=== PATIENT | male | born 1955 | race Caucasian/White ===

== ENCOUNTER → 2017-06-19 | Outpatient (CLI) | payer BC ==
[~2017-06-19] MED LIST: ALLO100T PO; CLON1TAB3 PO; HYDR1TAB2 PO; IBUP-1277 PO; LISI-729 PO; OMEP20CA9 PO
[2017-06-19 12:26] LABS: BASO % 0.1 %; BASO ABS # 0.02 K/uL (0-0.2); EOS % 0.4 %; EOS ABS # 0.06 K/uL (0-0.5); HEMATOCRIT 45.5 % (42-52); HEMOGLOBIN 16.1 g/dL (14.0-18.0); IG# 0.06 K/uL (0.00-0.02); LYMPH % 25.5 %; MEAN CELL VOLUME 87.2 fL (80-100); MEAN CORPUSCULAR HEMOGLOBIN 30.8 pg (25-34); MEAN CORPUSCULAR HGB CONC 35.4 g/dl (32-36); MEAN PLATELET VOLUME 9.1 fL (7.4-10.4); MONO % 7.3 %; MONO ABS # 1.01 K/uL (0.11-0.59); NEUT % 66.3 %; PLATELET COUNT 303 K/uL (130-400); RED CELL DISTRIBUTION WIDTH CV 13.4 % (11.5-14.5); RED CELL DISTRIBUTION WIDTH SD 42.4 fL (36.4-46.3); WHITE BLOOD COUNT 13.75 K/uL (4.8-10.8)
[2017-06-19 12:51] LABS: ALT/SGPT 38 U/L (12-78); AST/SGOT 13 U/L (15-37); BLOOD UREA NITROGEN 16 mg/dl (7-18); CALCIUM 9.2 mg/dl (8.5-10.1); CARBON DIOXIDE 27 mmol/L (21-32); CHOLESTEROL 209 mg/dl (0-200); CREATININE 1.18 mg/dl (0.60-1.40); GLUCOSE 107 mg/dl (70-99); POTASSIUM 3.6 mmol/L (3.5-5.1); SODIUM 143 mmol/L (136-145)
[2017-06-19 12:57] LABS: ALKALINE PHOSPHATASE 57 U/L (45-117); LDL CHOLESTEROL CALCULATED 128 mg/dl; TOTAL PROTEIN 7.8 gm/dl (6.4-8.2); URIC ACID 5.7 mg/dl (2.6-7.2)
== END | disposition home or self-care (01) ==
LOC: C.LABMFLN 07:05
PROVIDERS: ATTEND Family Medicine
DX: R78.5 Finding of other psychotropic drug in blood (principal); J01.90 Acute sinusitis, unspecified; M10.9 Gout, unspecified

== ENCOUNTER 2020-09-06 05:41 | Observation (INO) ==
--- NOTE | 2020-07-30 12:09 | PAT Medication Instructions ---
Medication Instructions Date of Service July 30, 2020 Home Medications Medication Instructions Recorded methocarbamol 500 mg tablet 500 mg PO BID #180 tab 03/07/20 tamsulosin 0.4 mg capsule 0.4 mg PO DAILY #30 cap 04/25/20 fenofibrate nanocrystallized 145 145 mg PO DAILY #90 tab 05/16/20 mg tablet omeprazole 20 mg capsule,delayed 20 mg PO DAILY #90 cap 05/16/20 release clonazepam 0.5 mg tablet See Rx Instructions PO HS PRN #45 06/08/20 tab hydrocodone 5 mg-acetaminophen 325 1 tab PO Q6H PRN #120 tab 07/24/20 mg tablet methocarbamol 500 mg tablet 500 mg PO BID tamsulosin 0.4 mg capsule 0.4 mg PO DAILY fenofibrate nanocrystallized 145 mg tablet 145 mg PO DAILY omeprazole 20 mg capsule,delayed release 20 mg PO DAILY clonazepam 0.5 mg tablet See Rx Instructions PO HS PRN hydrocodone 5 mg-acetaminophen 325 mg tablet 1 tab PO Q6H PRN STOP taking 48 hours before surgery fenofibrate nanocrystallized 145 mg tablet 145 mg PO DAILY DO NOT take the morning of surgery methocarbamol 500 mg tablet 500 mg PO BID Take morning of surgery With a small sip of water, OTHERWISE NOTHING TO EAT OR DRINK AFTER MIDNIGHT: tamsulosin 0.4 mg capsule 0.4 mg PO DAILY omeprazole 20 mg capsule,delayed release 20 mg PO DAILY hydrocodone 5 mg-acetaminophen 325 mg tablet 1 tab PO Q6H PRN (okay to take up to 4 hours prior to surgery if needed) Take evening before surgery methocarbamol 500 mg tablet 500 mg PO BID clonazepam 0.5 mg tablet See Rx Instructions PO HS PRN (if needed) hydrocodone 5 mg-acetaminophen 325 mg tablet 1 tab PO Q6H PRN (if needed) Other Notes If you have any questions please call us at [phone] or [phone] or [phone] or [phone]
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
[~2020-09-06 05:41] MED LIST changes: -ALLO100T PO; -CLON1TAB3 PO; +HEPARIN SOD 5,000 UNIT/0.5 ML VIAL SC SCH; -HYDR1TAB2 PO; -IBUP-1277 PO; +LACTATED RINGER'S 1,000 ML IV SCH; -LISI-729 PO; +LR 15ML/HR IV SCH; -OMEP20CA9 PO; +ceFAZolin 2000MG 2,000 MG/15 ML SYR IV SCH
[2020-09-06] MEDS ORDERED: ceFAZolin 2000MG 2,000 MG/15 ML SYR IV SCH (06:00)
[2020-09-06] MEDS ORDERED: HEPARIN SOD 5,000 UNIT/0.5 ML VIAL SQ SCH (06:00)
[2020-09-06] MEDS ORDERED: LR 15ML/HR IV SCH (06:00)
--- NOTE | 2020-09-06 07:01 | History & Physical Bridge Note ---
Date of Service September 06, 2020 History & Physical Bridge Note I have examined the patient, reviewed the History & Physical and in the interval since the performance of the History & Physical I have noted the following changes of clinical significance: no changes noted
--- NOTE | 2020-09-06 07:02 | History & Physical Report ---
Date of Service September 06, 2020 Assessment & Plan (1) Prostate cancer: Plan: Risks and benefits discussed at length for procedure. These include bleeding, infection, injury to surrounding tissues or organs, and risks associated with anesthesia. Patient states understanding and agrees to proceed. Will sign consent and proceed. Plan for Robot Asst. Laparoscopic Prostatectomy with bilateral pelvic lymph node dissection. History of Present Illness Primary Care Provider: Chad Duenas DO Patient here for procedure. No changes in medical issues. No major changes in urinary issues. Continued issues and concerns. No change in pain or discomfort. No severe fevers or chills. No chest pain or shortness of breath. Risks and benefits discussed at length for procedure. These include bleeding, infection, injury to surrounding tissues or organs, and risks associated with anesthesia. Patient and/or family states understanding and agrees to proceed. Consent and supporting information completed. Allergies Allergy/AdvReac Type Severity Reaction Status Date / Time iodine Allergy Intermediate HIVES Verified 09/06/20 05:56 shellfish derived Allergy Intermediate HIVES Verified 09/06/20 05:56 Home Medications Medication Instructions Recorded Confirmed Type methocarbamol 500 mg tablet 500 mg PO BID #180 tab 03/07/20 09/06/20 Rx tamsulosin 0.4 mg capsule 0.4 mg PO DAILY #30 cap 04/25/20 09/06/20 Rx fenofibrate nanocrystallized 145 145 mg PO DAILY #90 tab 05/16/20 09/06/20 Rx mg tablet omeprazole 20 mg capsule,delayed 20 mg PO DAILY #90 cap 05/16/20 09/06/20 Rx release clonazepam 0.5 mg tablet See Rx Instructions PO HS PRN #45 06/08/20 09/06/20 Rx tab hydrocodone 5 mg-acetaminophen 325 1 tab PO Q6H PRN #120 tab 08/23/20 09/06/20 Rx mg tablet Past Med/Surg History Medical History Abdominal hernia Arthritis BPH (benign prostatic hyperplasia) Cervical disc disease CKD (chronic kidney disease), stage III GERD (gastroesophageal reflux disease) controlled History of COVID-19 Dx 12/2019 > symptoms fever, fatigue, chills > resolved Hx of gout Hyperlipidemia Lumbar disc disease Obstructive sleep apnea on CPAP CPAP Occipital neuralgia Prostate cancer Surgical History Cyst REMOVED FROM BACK "WAS GROWING AROUND SPINAL CORD" H/O hand surgery LITTLE FINGER FRACTURE REPAIR History of colonoscopy History of lumbar surgery History of prostate biopsy History of tonsillectomy Hx of appendectomy Hx of cholecystectomy Family History Mother Diabetes Family history of diabetes mellitus Father Hypercholesterolemia Hypertension Family history of diabetes mellitus Unknown Prostate cancer Breast cancer Cancer Pancreatic, Brain Other No family history of adverse response to anesthesia Social History Smoking Status: Never smoker Second Hand Exposure: Yes ( A CHILD); Do You Dip or Chew Tobacco: No; Hx Alcohol Use: No Hx Substance Use: No Preferred Language: Zambian Communication Ability: Effective Visual Impairment: No Limitations Hearing Ability: Normal Network Developer Required: No Beliefs That Will Affect Care: None marital status: Current Living Situation: Spouse current occupational status: employed Feels Safe at Home: Yes Safety Concerns: Feels Safe At This Time Assistive Devices: CPAP and Glasses Review of Systems All systems reviewed & are unremarkable except as noted in HPI & below Physical Exam Physical Exam: General: Alert/Arousable. No Acute illness. . HEENT: Inspection normal. Normal inspection of face. Normal inspection of neck. Psychologic: Normal affect/No change in mentation. Respiratory: No use of accessory muscles. No respiratory changes or exacerbation or changes with tachypnea or dyspnea. Cardiovascular: No tachycardia Skin: Maury and Dry. No new rashes or visible lesions. Abdomen: Normal inspection. No guarding. Results & Data ([facility]) Vital Signs (Past 12 Hours) Vital Signs Temp Pulse Resp BP Pulse Ox 09/06/20 06:09 36.6 C 65 18 130/79 97 PG Care Time/CCT Total # of Minutes Spent Total Time Spent with Patient: Total time spent is greater than 50% in coordination of care (as documented) at patient's floor/unit and/or counseling patient: Coding Level of Care Code None Diagnoses Prostate cancer C61
[2020-09-06] MEDS ORDERED: fentaNYL citrate 100 MCG/2 ML VIAL ONE ×4 (07:04→11:33)
[2020-09-06] MEDS ORDERED: MIDAZOLAM HCL 1 MG/ML 2ML VIAL ONE (07:04)
[2020-09-06] MEDS ORDERED: BUPIVACAINE 0.5 % 5 MG/1 ML MPF 30ML VIAL ONE (07:19)
[2020-09-06] MEDS: LACTATED RINGER'S 1,000 ML IV SCH ×4 (07:27→23:08)
[2020-09-06] MEDS ORDERED: FLUMAZENIL 0.1 MG/1 ML 10 ML VIAL IV PRN (08:10)
[2020-09-06] MEDS ORDERED: ePHEDrine sulfate 50 MG/ML AMP IV PRN (08:10)
[2020-09-06] MEDS ORDERED: ATROPINE SULFATE 0.1 MG/ML 10ML SYR IV PRN (08:10)
[2020-09-06] MEDS ORDERED: ONDANSETRON INJ 2 MG/ML 2 ML VIAL IV PRN (08:10)
[2020-09-06] MEDS ORDERED: NALOXONE HCL 0.4 MG/1 ML VIAL/CARP IV PRN (08:10)
[2020-09-06] MEDS ORDERED: PROMETHAZINE HCL 12.5 MG in SODIUM CHLORIDE 0.9% 50 ML IV PRN (08:10)
[2020-09-06] MEDS ORDERED: LABETALOL HCL IV 5 MG/ML 20ML IV PRN (08:10)
[2020-09-06] MEDS ORDERED: DEXAMETHASONE SOD INJ 4 MG/ML VIAL ONE (08:22)
[2020-09-06] MEDS ORDERED: GLYCOPYRROLATE 0.2 MG/ML VIAL ONE (08:22)
[2020-09-06] MEDS ORDERED: PROPOFOL IV EMULSION 10 MG/ML 20 ML VIAL IV ONE (08:22)
[2020-09-06] MEDS ORDERED: ROCURONIUM BROMIDE 10 MG/ML 5 ML VIAL IV ONE ×5 (08:22→10:53)
[2020-09-06] MEDS ORDERED: ONDANSETRON INJ 2 MG/ML 2 ML VIAL ONE ×2 (08:22→10:53)
[2020-09-06] MEDS ORDERED: NEOSTIGMINE METHYLSULFATE 1 MG/ML 10ML VIAL ONE (08:22)
[2020-09-06] MEDS ORDERED: LIDOCAINE 2% 2 ML VIAL/AMP(20MG/ML) INFIL ONE (08:22)
[2020-09-06] MEDS ORDERED: SURGICEL ABSORB HEMOSTAT 2IN X 14IN TOP ONE (08:31)
[2020-09-06] MEDS ORDERED: FLOSEAL HEMOSTATIC MATRIX 10ML TOP ONE (10:23)
--- NOTE | 2020-09-06 11:44 | Operative Report ---
PG Post Operative Report Pre & Post Diagnosis Operation Date: 09/06/20 07:30 Pre-Op Diagnosis: Prostate Cancer Post-Op Diagnosis: Prostate Cancer I identified the patient and participated in the time-out.: Yes Procedure Operation Date: 09/06/20 07:30 Actual Procedures p Robotic Laparoscopic Assisted Radical Retropublic Prostatectomy, Pelvic Lymph Node Dissection, Repair of Umbilical Hernia and extensive lysis of adhesions - Bobby Duke, Surgeon Bobby Duke, II, DO Draw Tender Sylvester PAYAN Estimated Blood Loss 75 Findings Consistent with Post-Op Diagnosis Significant adhesions on the right lower quadrant at site of open appendectomy scar. Umbilical hernia. Specimens Prostate and Seminal Vesicle Left Pelvic Lymph Nodes Right Pelvic Lymph Nodes. Umbilical hernia Drains 18 Mack catheter. Anesthesia Type General Complications none Disposition Disposition: Recovery Room Indications Patient with Prostate Cancer. Risk and benefits were discussed at length. Patient elected to undergo robotic assisted laparoscopic Radical Prostatectomy. Description of Procedure The patient was brought to the operative suite and placed under general endotracheal intubation anesthesia in the supine position. The patient was transferred to the dorsal lithotomy position. At this point, the patient prepped and draped in the usual sterile fashion and a timeout was completed. Preoperative antibiotics of Ancef 2 grams had been given. TEENA's and SCD's were placed on the patient's lower extremities. A catheter was placed using sterile technique. With the time out completed the patient was placed into Trendelenburg and the skin at the umbilicus was anesthetized. A small incision was made superior to the umbilicus. A Varess Needle was placed and confirmed to be in the abdominal cavity. Water drop test passed. The Abdominal cavity was insufflated to 15 mmHG. The camera port was then placed. A laparoscopic camera was placed into the port and the abdominal cavity inspected. No concerning features were noted. At this point, the skin was marked for port placement and 8mm working ports were placed. The skin was anesthetized down to fascia and an approx 1cm incision was made to place the 3 x 8mm ports. A 12mm and 5 mm funeral assistant ports were also placed in similar fashion under direct visualization. The patient was transferred into steep Trendelenburg position and the legs lowered. The robot was positioned and docked. The camera was placed and all trocars were positioned under direct visualization. Sylvester PAYAN was integral in port placement, camera utilization, and docking procedure. She remained in sterile attire and then proceeded to assist the remainder of the case. At this point, I transitioned to the robotic console. At this point, the sigmoid colon was mobilized superiorly and the pelvis assessed. Adhesions were freed to allow mobilization. Extensive adhesions were lysed in the right lower quadrant near the location of an appendectomy scar. The peritoneum in the midline was opened between rectum and bladder and the vas deferens and seminal vesicles exposed. These were dissected with blunt technique. The vas was clipped and cut and mobilized. Cautery was used to assist dissection avoiding the tissue posteriorly near the rectum. The tissues lateral to the seminal vesicles were clipped with a hemolock and all bleeding controlled. This was taken as inferior as possible from this position. The medial umbilical ligaments were then identified and the peritoneum directly lateral on the right followed by the left was opened. The tissues were bluntly dissected to free the bladder's lateral attachments. This was taken down to the pubic bone and exposed the endopelvic fascia bilaterally. The medial ligaments were cut and the bladder dropped. The tissues was dissected anterior to the prostate. The endopelvic fascia on each side was then opened and the lateral edges of the prostate dissected. The Dorsal venous complex of the prostate was dissected and assessed. A 2-0 suture was used to ligate the vessels. A suspension stitch was used and clipped. Electrocautery was used to cut the anterior attachments, the puboprostatic ligaments, and venous tissues. The mack was manipulated to better visual the bladder neck and dissection was taken using electrocautery. The bladder neck was opened and dissected from the prostate. The UO were identified and dissection taken in a direction to avoid each side. The vas stump and seminal vesicles were exposed and used to assist in traction to dissect. The prostatic pedicles were better exposed. The posterior prostate was dissected. An attempt was made to limit cautery and utilize cold dissection of the lateral posterior prostate to attempt preservation of the neurovascular bundle bilaterally. Hemolock clips were utilized to clip the prostatic pedicle bilaterally. The dissection was taken to the apex of the prostate. The anterior prostate was released and the urethra exposed. The left side appeared significantly more adhered to the surrounding tissues and took additional time to dissect free. Adhesions and thickening appeared worse at the bladder neck than apex. Cold cutting was used to open the anterior portion and expose the catheter. This was removed and the urethra incised. The prostate was further freed and grasped and removed from the field. The entire dissection bed was inspected.Hemostatic agent was placed in the region. No areas of injury or bleeding was noted. Care was taken to examine the perirectal tissues. A probe was placed and no injuries or other issues were observed. The bladder neck and urethra were then approximated with a running barbed suture starting at the 5 o'clock position and moving to the 12 o'clock on each side. This was tied at the anterior portion. A leak test was completed without any evidence of issues. The right and left pelvic lymph tissue was identified in relation to the iliac vessels. Distal dissection was taken to the Node of Anthony. Inferiorly the obturator vessels and nerve were identified. Lymphatic tissue within the surround fat tissue was dissected. This packet of tissues were sent for pathologic analysis and lymph node assessment. This was done for each separate side. Hemostatic agent was placed on the exposed vessels. The entire dissection space was inspected one final time. No bleeding or injuries or areas of concern were noted. No tumor or other concerning features were noted. At this point, the robot was undocked and moved away from the patient. The patient was taken out of Trendelenberg. The port sites were all assessed laparoscopically. The endoscopic bag was moved into the midline port. The 12mm port site was closed with the Telly Gilman device. The other ports were assessed and no issues observed. The umbilical incision was opened further exposing fascia which was then opened in order to removed the prostate in the bag. The fascia was opened along the midline and carried down the the umbilical hernia opening. The umbilical hernia sac was ligated with 2-0 vicryl. This was the cut and removed and the fascia opening was included in the incision. The prostate was removed. A running 1-0 PDS suture was used to close fascia. A 2-0 vicryl was used to approximate the subcutaneous tissues. The skin at each site was closed with a nina. The area was cleaned and bandages placed on each incision. The patient was cleaned and bandaged, aroused from anesthesia, and transferred to the pacu in stable condition having tolerated the procedure well with no complications. I was present and participated in all aspects of the procedure. Sylvester PAYAN was critical in the portions as mentioned above. Will plan to observe postoperatively and monitor. Mack to be remain in place until followup. I attest to the content of the Intraoperative Record and any orders documented therein. Any exceptions are noted below.
[2020-09-06] MEDS: fentaNYL citrate 100 MCG/2 ML VIAL IV PRN ×4 (12:15→12:33)
[2020-09-06 12:27] LABS: Hematocrit (blood only) 40.3 % (42-52); Hemoglobin 13.9 g/dL (14.0-18.0); Mean Corpuscular Hemoglobin 30.3 pg (25-34); Mean Platelet Volume 8.7 fL (7.4-10.4); Platelet Count 200 K/uL (130-400); RDW Coefficient of Variation 13.4 % (11.5-14.5); RDW Standard Deviation 43.3 fL (36.4-46.3); Red Blood Count 4.58 M/uL (4.7-6.1); White Blood Count 10.02 K/uL (4.8-10.8)
[2020-09-06 12:48] LABS: Mean Corpuscular Hgb Conc 34.5 g/dL (32-36)
[2020-09-06 12:49] LABS: BUN Creatinine Ratio 14.7 (10-20); Calcium 8.1 mg/dl (8.5-10.1); Creatinine Clr Calc Pharmacy 75.2 ml/min; Est GFR (African American) 72.5 ml/min; Est GFR (Non-African American) 62.5 ml/min; Potassium 3.4 mmol/L (3.5-5.1)
[2020-09-06 12:53] LABS: Basophils # (auto) 0.01 K/uL (0-0.2); Basophils % (auto) 0.1 %; Eosinophils # (auto) 0.02 K/uL (0-0.5); Eosinophils % (auto) 0.2 %; Immature Granulocytes # (auto) 0.02 K/uL (0.00-0.02); Immature Granulocytes % (auto) 0.2 %; Lymphocytes # (auto) 1.14 K/uL (1.2-3.4); Lymphocytes % (auto) 11.4 %; Monocytes # (auto) 0.26 K/uL (0.11-0.59); Monocytes % (auto) 2.6 %; Neutrophils # (auto) 8.57 K/uL (1.4-6.5); Neutrophils % (auto) 85.5 %
--- NOTE | 2020-09-06 13:02 | Anesthesiology Progress Note ---
Date of Service September 06, 2020 Anesthesia Post Procedure Vital Signs Vital Signs: Temp Pulse Pulse Resp BP BP Pulse Ox 09/06/20 12:50 36.2 C L 80 13 137/81 98 09/06/20 12:35 68 15 121/73 97 09/06/20 12:25 78 13 133/80 97 09/06/20 12:15 80 16 139/66 95 09/06/20 12:05 79 16 146/92 H 97 09/06/20 11:58 36.3 C L 87 12 148/87 H 96 09/06/20 06:09 36.6 C 65 18 130/79 97 Pain Intensity Abdomen: Pain Intensity: 4 Transfer of Care Handoff Completed per policy Notes Mental Status: alert / awake / arousable Patient Amnestic to Procedure: Yes Nausea / Vomiting: adequately controlled Pain: adequately controlled Airway Patency, RR, SpO2: stable & adequate BP & HR: stable & adequate Hydration State: stable & adequate Anesthetic Complications: no major complications apparent
[2020-09-06] MEDS ORDERED: MoRPHine SULFATE 2 MG/ML CARP IV PRN (13:10)
[2020-09-06] MEDS ORDERED: MoRPHine SULFATE 4 MG/ML 1 ML CARP\\VIAL IV PRN (13:10)
[2020-09-06] MEDS ORDERED: clonazePAM 0.25 MG TAB PO PRN (13:10)
[2020-09-06] MEDS: oxyCODONE HCL IR 5 MG TAB (IMMEDIATE RELEASE) PO PRN ×2 (15:04→23:06)
[2020-09-06] MEDS: ceFAZolin 2000MG 2,000 MG/15 ML SYR IV SCH ×2 (15:19→23:49)
[2020-09-06] MEDS: MoRPHine SULFATE 2 MG/ML CARP IV PRN (20:24)
[2020-09-06] MEDS: METHOCARBAMOL 500 MG TABLET PO SCH (20:25)
[2020-09-06] MEDS: HEPARIN SOD 5,000 UNIT/0.5 ML VIAL SQ SCH (20:26)
[2020-09-06] MEDS: ONDANSETRON INJ 2 MG/ML 2 ML VIAL IV PRN (20:37)
[2020-09-06] MEDS: ACETAMINOPHEN 325 MG TAB PO PRN (23:06)
[2020-09-07] MEDS: MoRPHine SULFATE 2 MG/ML CARP IV PRN (00:01)
[2020-09-07] MEDS: oxyCODONE HCL IR 5 MG TAB (IMMEDIATE RELEASE) PO PRN ×5 (06:28→22:22)
--- NOTE | 2020-09-07 08:05 | Urology Progress Note ---
Date of Service September 07, 2020 Assessment & Plan (1) Prostate cancer: Plan: Postop day #1 s/p Robotic Laparoscopic Assisted Radical Retropubic Prostatectomy, Pelvic Lymph Node Dissection, Repair of Umbilical Hernia and extensive lysis of adhesions with Dr. Duke. - Patient progressing slowly, continues to have a moderate amount of pain. - Remains afebrile. - Labs reviewed, Wbc 10.88 and Cr 1.08. Hgb 13.5. - Tolerating clear liquid diet, will continue -- Ok to advance diet as tolerated. - Encourage ambulation and use of incentive spirometer. - Maintain mack catheter. - Continue supportive care and pain management. - Discharge pending patient progression. Admission and Anticipated Discharge Date Admission Date: September 06, 2020 Subjective Pt examined at bedside this AM. Awake, resting in bed on arrival. He reports generalized abdominal pain which increases with movement - Managing with PO Oxycodone and Tylenol Mack catheter intact, draining clear yellow urine. No fevers or chills. Denies nausea/vomiting. Tolerating clear liquid diet. No flatus. OOB yesterday. Review of Systems Constitutional: as per Subjective / HPI Gastrointestinal: as per Subjective / HPI Genitourinary: + as per Subjective / HPI Physical Exam Constitutional: well developed and well nourished; no acute distress Respiratory: normal respiratory effort; no labored breathing and no audible wheezes Gastrointestinal (Abdomen): Inspection/Auscultation: + abdominal surgical incision (Surgical incision sites with gauze dressing and tape - c/d/i) Percussion/Palpation: + abdomen tender (mild generalized tenderness with palpation) and abdomen soft; no guarding and abdomen not rigid Musculoskeletal: Head/Neck/Chest: normocephalic Skin: Warm and dry Neurologic: awake Psychiatric: Orientation: alert, oriented x 3 and cooperative Genitourinary: Mack catheter intact Results & Data ([facility]) Vital Signs (Past 12 Hours) Vital Signs Temp Pulse Resp BP Pulse Ox 09/07/20 03:30 36.9 C 78 16 154/93 H 93 09/06/20 22:51 37 C 83 16 157/95 H 95 PG Care Time/CCT Total # of Minutes Spent Total Time Spent with Patient: Total time spent is greater than 50% in coordination of care (as documented) at patient's floor/unit and/or counseling patient: Coding Level of Care Code None Diagnoses Prostate cancer C61
[2020-09-07 08:31] LABS: Basophils # (auto) 0.01 K/uL (0-0.2); Basophils % (auto) 0.1 %; Eosinophils # (auto) 0.01 K/uL (0-0.5); Eosinophils % (auto) 0.1 %; Hematocrit (blood only) 39.2 % (42-52); Hemoglobin 13.5 g/dL (14.0-18.0); Immature Granulocytes # (auto) 0.01 K/uL (0.00-0.02); Immature Granulocytes % (auto) 0.1 %; Lymphocytes # (auto) 1.36 K/uL (1.2-3.4); Lymphocytes % (auto) 12.5 %; Mean Corpuscular Hemoglobin 29.9 pg (25-34); Mean Corpuscular Hgb Conc 34.4 g/dL (32-36); Mean Corpuscular Volume 86.9 fL (80-100); Mean Platelet Volume 8.9 fL (7.4-10.4); Monocytes # (auto) 0.95 K/uL (0.11-0.59); Monocytes % (auto) 8.7 %; Neutrophils # (auto) 8.54 K/uL (1.4-6.5); Neutrophils % (auto) 78.5 %; Platelet Count 213 K/uL (130-400); RDW Coefficient of Variation 13.4 % (11.5-14.5); RDW Standard Deviation 42.8 fL (36.4-46.3); Red Blood Count 4.51 M/uL (4.7-6.1); White Blood Count 10.88 K/uL (4.8-10.8)
[2020-09-07] MEDS: FENOFIBRATE NANOCRYSTALLIZED 145 MG TABLET PO SCH (08:35)
[2020-09-07] MEDS: PANTOprazole 40 MG TAB PO SCH ×2 (08:36→08:44)
[2020-09-07] MEDS: ACETAMINOPHEN 325 MG TAB PO PRN ×3 (08:37→21:25)
[2020-09-07] MEDS: ONDANSETRON INJ 2 MG/ML 2 ML VIAL IV PRN (08:42)
[2020-09-07] MEDS: LACTATED RINGER'S 1,000 ML IV SCH ×2 (08:44→17:44)
[2020-09-07] MEDS: HEPARIN SOD 5,000 UNIT/0.5 ML VIAL SQ SCH ×2 (08:44→21:24)
[2020-09-07] MEDS: METHOCARBAMOL 500 MG TABLET PO SCH ×2 (08:45→21:24)
[2020-09-07 09:17] LABS: BUN Creatinine Ratio 10.3 (10-20); Calcium 8.3 mg/dl (8.5-10.1); Creatinine Clr Calc Pharmacy 85.7 ml/min; Est GFR (African American) 84.8 ml/min; Est GFR (Non-African American) 73.2 ml/min; Potassium 3.7 mmol/L (3.5-5.1)
[2020-09-08] MEDS: LACTATED RINGER'S 1,000 ML IV SCH ×2 (03:06→17:00)
[2020-09-08] MEDS: oxyCODONE HCL IR 5 MG TAB (IMMEDIATE RELEASE) PO PRN ×4 (03:06→22:43)
[2020-09-08] MEDS: ACETAMINOPHEN 325 MG TAB PO PRN ×3 (03:06→19:37)
[2020-09-08 06:13] LABS: Basophils # (auto) 0.01 K/uL (0-0.2); Basophils % (auto) 0.1 %; Eosinophils # (auto) 0.07 K/uL (0-0.5); Eosinophils % (auto) 0.9 %; Hematocrit (blood only) 37.5 % (42-52); Hemoglobin 12.8 g/dL (14.0-18.0); Immature Granulocytes # (auto) 0.01 K/uL (0.00-0.02); Immature Granulocytes % (auto) 0.1 %; Lymphocytes # (auto) 1.31 K/uL (1.2-3.4); Mean Corpuscular Hemoglobin 30.3 pg (25-34); Mean Corpuscular Hgb Conc 34.1 g/dL (32-36); Mean Corpuscular Volume 88.7 fL (80-100); Mean Platelet Volume 9.1 fL (7.4-10.4); Monocytes # (auto) 0.91 K/uL (0.11-0.59); Monocytes % (auto) 11.1 %; Neutrophils # (auto) 5.86 K/uL (1.4-6.5); Neutrophils % (auto) 71.8 %; Platelet Count 218 K/uL (130-400); RDW Coefficient of Variation 13.5 % (11.5-14.5); Red Blood Count 4.23 M/uL (4.7-6.1); White Blood Count 8.17 K/uL (4.8-10.8)
[2020-09-08 06:44] LABS: BUN Creatinine Ratio 10.3 (10-20); Calcium 8.3 mg/dl (8.5-10.1); Creatinine Clr Calc Pharmacy 94.4 ml/min; Est GFR (African American) 95.4 ml/min; Est GFR (Non-African American) 82.3 ml/min; Potassium 3.7 mmol/L (3.5-5.1)
[2020-09-08] MEDS: HEPARIN SOD 5,000 UNIT/0.5 ML VIAL SQ SCH ×2 (08:11→19:38)
[2020-09-08] MEDS: FENOFIBRATE NANOCRYSTALLIZED 145 MG TABLET PO SCH (08:11)
[2020-09-08] MEDS: PANTOprazole 40 MG TAB PO SCH (08:12)
[2020-09-08] MEDS: METHOCARBAMOL 500 MG TABLET PO SCH ×2 (08:13→19:38)
--- NOTE | 2020-09-08 12:24 | Urology Progress Note ---
Date of Service September 08, 2020 Assessment & Plan (1) Prostate cancer: Plan: Postop day #2 s/p Robotic Laparoscopic Assisted Radical Retropubic Prostatectomy, Pelvic Lymph Node Dissection, Repair of Umbilical Hernia and extensive lysis of adhesions with Dr. Duke. Continue increase ambulation. Frequent small diet. No fevers. No chills. Low energy/fatigue. Pain controlled. No N/v No bowel return yet. May be few days. Bloated" feeling. Increase ambulating. Okay to chew gum/candy. Discomfort between shoulders likely from CO2. Should improve with ambulation If continue stability Likely home tomorrow Admission and Anticipated Discharge Date Admission Date: September 06, 2020 Subjective Postop from urologic surgery. Patient has been tolerating well, but is having some pain and discomfort. Incisions have been mild sore. Having some abdominal distension/gas pains. Has tolerated catheter. Has not had severe pain or uncontrollable pain. Patient has been ambulating. Has not had bowel movement or major change. No new nausea or vomiting. Had tolerated anesthesia without major problems Tolerated liquid diet postoperatively. Review of Systems Review of Systems: All systems reviewed & are unremarkable except as noted in HPI & below Physical Exam Physical Exam: General: Alert in no acute distress. HEENT: Normocephalic Atraumatic. Inspection normal. Cranial Nerves 2-12 Grossly intact. Normal inspection of face. Normal inspection of neck. Psychologic: Normal affect. Respiratory: Nonlabored. No use of accessory muscles. No tachypnea or dyspnea. Cardiovascular: No tachycardia Skin: [place] and Dry. No rashes or visible lesions. Extremities/Lymphatics: No edema Abdomen: Appropriately tender. Mild distended. No rebound or guarding. Wound: Clean, dry, covered. Results & Data ([facility]) Vital Signs (Past 12 Hours) Vital Signs Temp Pulse Resp BP Pulse Ox 09/08/20 07:30 37.2 C 80 18 138/86 93 PG Care Time/CCT Total # of Minutes Spent Total Time Spent with Patient: Total time spent is greater than 50% in coordination of care (as documented) at patient's floor/unit and/or counseling patient: Coding Level of Care Code 63404 Subseq Hosp Care Lvl 2 Diagnoses Prostate cancer C61
[2020-09-09] MEDS: ACETAMINOPHEN 325 MG TAB PO PRN (05:44)
[2020-09-09 05:58] LABS: Basophils # (auto) 0.02 K/uL (0-0.2); Basophils % (auto) 0.3 %; Eosinophils # (auto) 0.25 K/uL (0-0.5); Eosinophils % (auto) 3.7 %; Hematocrit (blood only) 39.8 % (42-52); Hemoglobin 13.6 g/dL (14.0-18.0); Immature Granulocytes # (auto) 0.02 K/uL (0.00-0.02); Immature Granulocytes % (auto) 0.3 %; Lymphocytes # (auto) 1.35 K/uL (1.2-3.4); Lymphocytes % (auto) 19.9 %; Mean Corpuscular Hemoglobin 30.4 pg (25-34); Mean Corpuscular Hgb Conc 34.2 g/dL (32-36); Mean Corpuscular Volume 88.8 fL (80-100); Mean Platelet Volume 8.9 fL (7.4-10.4); Monocytes % (auto) 8.8 %; Neutrophils # (auto) 4.55 K/uL (1.4-6.5); Platelet Count 230 K/uL (130-400); RDW Coefficient of Variation 13.2 % (11.5-14.5); RDW Standard Deviation 43.2 fL (36.4-46.3); Red Blood Count 4.48 M/uL (4.7-6.1); White Blood Count 6.79 K/uL (4.8-10.8)
[2020-09-09 06:29] LABS: BUN Creatinine Ratio 10.6 (10-20); Calcium 8.4 mg/dl (8.5-10.1); Creatinine Clr Calc Pharmacy 101.7 ml/min; Est GFR (African American) 104.3 ml/min; Potassium 3.6 mmol/L (3.5-5.1)
[2020-09-09] MEDS: HEPARIN SOD 5,000 UNIT/0.5 ML VIAL SQ SCH (09:11)
[2020-09-09] MEDS: METHOCARBAMOL 500 MG TABLET PO SCH (09:11)
[2020-09-09] MEDS: FENOFIBRATE NANOCRYSTALLIZED 145 MG TABLET PO SCH (09:11)
--- NOTE | 2020-09-09 12:39 | Urology Progress Note ---
Date of Service September 09, 2020 Assessment & Plan (1) Prostate cancer: Plan: Postop day #3 s/p Robotic Laparoscopic Assisted Radical Retropubic Prostatectomy, Pelvic Lymph Node Dissection, Repair of Umbilical Hernia and extensive lysis of adhesions with Dr. Duke. Continuing to improve. Encouraged increase ambulation. Frequent small diet. No fevers. No chills. Low energy/fatigue. Pain controlled. No N/v No bowel return yet. May be few days. Increase ambulating. Okay to chew gum/candy. Discomfort between shoulders improve with ambulation If continue stability Likely home Admission and Anticipated Discharge Date Admission Date: September 06, 2020 Subjective Postop from urologic surgery. Was having some pain yesterday. Bloating and distention with back pain. Otherwise, Patient has been tolerating well, but is having some pain and discomfort. Incisions have been mild sore. Still some abdominal distension/gas pains. Has tolerated catheter. Has not had severe pain or uncontrollable pain. Patient has been ambulating. Has not had bowel movement or major change. No new nausea or vomiting. Had tolerated anesthesia without major problems Tolerated diet postoperatively. Review of Systems Review of Systems: All systems reviewed & are unremarkable except as noted in HPI & below Physical Exam Physical Exam: General: Alert in no acute distress. HEENT: Normocephalic Atraumatic. Inspection normal. Cranial Nerves 2-12 Grossly intact. Normal inspection of face. Normal inspection of neck. Psychologic: Normal affect. Respiratory: Nonlabored. No use of accessory muscles. No tachypnea or dyspnea. Cardiovascular: No tachycardia Skin: [place] and Dry. No rashes or visible lesions. Extremities/Lymphatics: No edema Abdomen: Appropriately tender. Mild distended. No rebound or guarding. Wound: Clean, dry, covered. Results & Data ([facility]) Vital Signs (Past 12 Hours) Vital Signs Temp Pulse Resp BP Pulse Ox 09/09/20 08:32 37.0 C 71 18 152/84 H 95 PG Care Time/CCT Total # of Minutes Spent Total Time Spent with Patient: Total time spent is greater than 50% in coordination of care (as documented) at patient's floor/unit and/or counseling patient: Coding Level of Care Code 40511 Subseq Hosp Care Lvl 2 Diagnoses Prostate cancer C61
--- NOTE | 2020-09-11 09:42 | Discharge Summary ---
Date of Service September 11, 2020 Admission HPI Per Admitting Provider Patient here for procedure. No changes in medical issues. No major changes in urinary issues. Continued issues and concerns. No change in pain or discomfort. No severe fevers or chills. No chest pain or shortness of breath. Risks and benefits discussed at length for procedure. These include bleeding, infection, injury to surrounding tissues or organs, and risks associated with anesthesia. Patient and/or family states understanding and agrees to proceed. Consent and supporting information completed. Admission Exam Per Admitting Provider See H&P Principal Diagnosis Prostate Cancer Discharge Exam General: Alert in no acute distress. HEENT: Normocephalic Atraumatic. Inspection normal. Psychologic: Normal affect. Skin: [place] and Dry. No rashes or visible lesions. Abdomen: Soft Non-distended. No rebound or guarding. Discharge Data Allergies Allergy/AdvReac Type Severity Reaction Status Date / Time iodine Allergy Intermediate HIVES Verified 09/06/20 05:56 shellfish derived Allergy Intermediate HIVES Verified 09/06/20 05:56 Procedures Performed Operation Date: 09/06/20 07:30 Actual Procedures p Robotic Laparoscopic Assisted Radical Retropublic Prostatectomy, Pelvic Lymph Node Disection - Bobby Duke DO s , Repair of Umbilical Hernia - Bobby Duke DO Hospital Course (1) Prostate cancer: Postop day #3 s/p Robotic Laparoscopic Assisted Radical Retropubic Prostatectomy, Pelvic Lymph Node Dissection, Repair of Umbilical Hernia and extensive lysis of adhesions with Dr. Duke. Continuing to improve. Encouraged increase ambulation. Frequent small diet. No fevers. No chills. Low energy/fatigue. Pain controlled. No N/v No bowel return yet. May be few days. Increase ambulating. Okay to chew gum/candy. Discomfort between shoulders improve with ambulation If continue stability Likely home Total Time Total Time Spent Total Time Spent (In Minutes): 10 minutes Total Time Includes: Examination of the Patient, Discharge Planning, Medication Reconciliation and Communication With Other Providers Discharge Plan Discharge Items Patient Disposition: Home - Self-Care Reason For Visit: Prostate Cancer Discharge Diagnosis: Prostate Cancer Activity: Per Instructions section Lifting: No more than 25 pounds Bathing Comment: Ok to shower. No tub baths or soaks. Sexual Activity: Wait until after follow-up appointment Exercise/Sports: Wait until after follow-up appointment Driving/Machine Use: Do not drive while taking prescription pain medication. Non-emergency contact: Surgeon and Urologist Call non-emergency contact if: you have any medication questions, your symptoms worsen, your pain is not controlled, your pain is worsening, you have a fever, your temperature is above 101, your wound has increased redness and your wound has increased drainage Follow-up/Referrals: Bobby Duke DO [Physician] - Chad Duenas DO [Primary Care Provider] - [facility],Nurse [FAKE FOR SCHEDULES] - Diet: Regular Addtl Attending Provider Instructions: Please take all medications as prescribed and keep all follow-ups as scheduled. Please call our office at [phone] with any questions, concerns or need to reschedule appointments for any reason. We are happy to assist you We have sent an antibiotic to your pharmacy of choice. Please begin antibiotic as prescribed the day BEFORE your scheduled voiding trial at [facility]. Please continue antibiotic every 12 hours through the day AFTER your voiding trial. Activity: We recommend having someone with you for the first few days after surgery to help care for you. For the first 2 weeks after surgery, we would like you to get up and walk around your house. However, we recommend limit physical activity that would increase your heart rate. This will allow your body to rest and heal. Take naps if you feel tired. Don't lift anything heavier than 10 pounds, mow the law or ride a bicycle until your follow-up appointment. Please avoid long car rides. Home Care: Unless directed otherwise, drink 6 to 8 glasses of water a day (enough to keep your urine light colored). This will also help keep a healthy flow of urine. We recommend using a stool softener for the first two weeks to avoid constipation. [place] Catheter or Suprapubic Catheter care: Keep the catheter well secured with either a leg back or leg strap with large bag. Empty your bag when it's about half full. You may notice some blood in the bag. This is normal after surgery and while the catheter is in place. Use mild soap (such as Dove or Dial) and water to wash the catheter and the head of your penis daily, or more frequently if needed. Return to your normal diet, we encourage good protein intake to promote healing. You may shower as normal. Please avoid tub baths or soaking until catheter removed and incisions well healed. Wearing sweat pants while you have the catheter is recommended, they will be more comfortable. Follow-up Your follow up appointments for having your catheter removed, and follow up with your physician should already be scheduled. If you have any questions regarding this, please contact our office. Your final pathology report will be discussed at your physician follow-up appointment. Call [facility] at [phone] right away if you have any of the following: Chest pain or trouble breathing (call 911 or go to the hospital) Fever of 101F or higher, uncontrolled vomiting Heavy bleeding, clots, or bright red blood from the catheter Catheter that falls out or stops draining Foul-smelling discharge from your catheter Redness, swelling, warmth, or increased pain at your incision site Drainage, pus, or bleeding from your incision Pending Studies at Discharge: Yes Stand-Alone Forms: My [facility] [employer], Smoking Cessation Medications and DC Order Prescriptions: New docusate sodium [Colace] 100 mg capsule 100 mg PO BID Qty: 60 RF: 0 Continued methocarbamol 500 mg tablet 500 mg PO BID Qty: 180 RF: 1 fenofibrate nanocrystallized 145 mg tablet 145 mg PO DAILY Qty: 90 RF: 1 omeprazole 20 mg capsule,delayed release(DR/EC) 20 mg PO DAILY Qty: 90 RF: 1 hydrocodone-acetaminophen 5-325 mg tablet 1 tab PO Q6H PRN (Reason: pain) Qty: 120 RF: 0 clonazepam 0.5 mg tablet See Rx Instructions PO HS PRN (Reason: anxiety) Qty: 45 RF: 2 tamsulosin 0.4 mg capsule 0.4 mg PO DAILY Qty: 30 RF: 11 Discharge Orders: Discharge Order (Routine); Ordered 09/09/20 Ordered By: Bobby Shah/Other Patient Handouts: Cancer Overview Admission Data Admit Date/Time: 09/06/20 11:58 Attending Provider: Bobby Duke Admit Provider: Bobby Duke Primary Care Provider: Chad Duenas Other Interventions: Discharge Summary Assessment (RN) Last Done: 09/09/20 15:01 Coding Level of Care Code D/C DAY MANAGEMENT <30 MINS Diagnoses Prostate cancer C61
== END 2020-09-09 17:25 | disposition home or self-care (01) ==
LOC: ASU 05:41 → 3W 11:58 → INTOOBSV 11:58